=== PATIENT | male | born 1955 | race Caucasian/White ===

== ENCOUNTER 2022-05-08 13:28 | Emergency (ER) | payer MEDICARE | END 2022-05-08 15:53 | disposition home or self-care (01) | LOC: NAV ERS 13:28 | DX: S80.11XA Contusion of right lower leg, initial encounter (principal); I10 Essential (primary) hypertension; I48.91 Unspecified atrial fibrillation; F17.210 Nicotine dependence, cigarettes, uncomplicated; Z79.899 Other long term (current) drug therapy; Z79.01 Long term (current) use of anticoagulants; W22.8XXA Striking against or struck by other objects, initial encounter | CPT/HCPCS: 99283 ==

== ENCOUNTER 2022-08-16 10:30 | Outpatient (CLI) | payer MEDICARE | END 2022-08-16 10:31 | disposition home or self-care (01) | LOC: NAV RAD 10:30 | PROVIDERS: ATTEND Family Medicine | DX: R22.41 Localized swelling, mass and lump, right lower limb (principal) ==